=== PATIENT | female | born 1955 | race Caucasian/White ===

== ENCOUNTER 2016-04-21 11:51 | Emergency (ER) | payer OTHER ==
[~2016-04-21] VITALS: Ht 165.1 cm; Wt 74.0 kg
[~2016-04-21 11:51] MED LIST: CHOL1CAP57 PO; METO-551 PO; NRV/5 PO; OXYB5TAB74 PO; ROSU5TAB PO; VITA10004 PO
[2016-04-21 11:54] VITALS: TEMP 36.5; Ht 165.1 cm; Wt 74.0 kg
[2016-04-21 12:07] VITALS: O2SAT 98
[2016-04-21] MEDS ORDERED: ROSU5TAB PO (12:20)
[2016-04-21] MEDS ORDERED: SODIUM CHLORIDE 0.9% 1000ML 1,000 ML IV STA (12:54)
--- NOTE | 2016-04-21 13:15 | DIAGNOSTIC IMAGING REPORT ---
CHEST ONE VIEW PORTABLE CLINICAL HISTORY: Altered mental status. Weakness. COMPARISON STUDY: 01/08/2014 FINDINGS: The cardiac and mediastinal contours are normal. There is no evidence of focal pulmonary consolidation. There is no evidence of failure. No pleural effusions are visualized.[ There is a stable area of linear atelectasis/scarring at the left lung base IMPRESSION: No active disease in the chest. Electronically signed by: Joel Redding M.D. 04/21/2016 1:13 PM Dictated Date/Time: 04/21/2016 1:13 PM
[2016-04-21 13:16] LABS: COMPLETE YES; EOS % 0.8 %; HEMATOCRIT 35.8 % (37-47); IG% 0.2 %; LYMPH % 36.9 %; LYMPH ABS # 1.91 K/uL (1.2-3.4); MEAN CELL VOLUME 86.5 fL (80-100); MEAN CORPUSCULAR HEMOGLOBIN 29.7 pg (25-34); MEAN CORPUSCULAR HGB CONC 34.4 g/dl (32-36); MEAN PLATELET VOLUME 10.2 fL (7.4-10.4); MONO % 7.4 %; NEUT % 54.7 %; PLATELET COUNT 234 K/uL (130-400); RED BLOOD COUNT 4.14 M/uL (4.2-5.4); WHITE BLOOD COUNT 5.17 K/uL (4.8-10.8)
[2016-04-21 13:35] LABS: ALT/SGPT 24 U/L (12-78); BLOOD UREA NITROGEN 20 mg/dl (7-18); BUN/CREATININE RATIO 21.5 (10-20); CALCIUM 9.2 mg/dl (8.5-10.1); CARBON DIOXIDE 24 mmol/L (21-32); CHLORIDE 109 mmol/L (98-107); CREATININE 0.94 mg/dl (0.60-1.20); GLUCOSE 87 mg/dl (70-99); MAGNESIUM 2.1 mg/dl (1.8-2.4); POTASSIUM 3.7 mmol/L (3.5-5.1); SODIUM 143 mmol/L (136-145)
[2016-04-21 13:44] LABS: ALKALINE PHOSPHATASE 70 U/L (45-117); AST/SGOT 15 U/L (15-37); THYROID STIMULATING HORMONE 0.977 uIu/ml (0.300-4.500)
--- NOTE | 2016-04-21 14:34 | EMERGENCY ROOM VISIT NOTE ---
History Report prepared by Ravin: Paty Garzon Under the Supervision of: Dr. Fermin Oswald D.O. First contact with patient: 12:48 Chief Complaint: HYPERTENSION Stated Complaint: HTN, DIZZY - 179/100 History of Present Illness The patient is a 61 year old female who presents to the Emergency Room with complaints of persistent hypertension that began prior to arrival. The patient states that at the end of March she lost her father. She states that for the past three weeks she has been experiencing increased stress and believes that it is all catching up to her now. The patient states that she has been experiencing chest pain and dizziness. 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 The patient states that she has a history of hypertension, noting that she takes 25 mg of Lopressor three times a day. She states that she took her medication normally this morning. Source of History: patient Onset: prior to arrival Position: other (global) Symptom Intensity: 179/100 Quality: other (hypertenison) Timing: other (persistent) Modifying Factors (Worsening): other (stress) Associated Symptoms: + chest pain Note: Associated Symptoms: dizziness Review of Systems See HPI for pertinent positives & negatives. A total of 10 systems reviewed and were otherwise negative. Past Medical & Surgical Medical Problems: (1) HYPERTENSION NOS Family History Cancer Diabetes mellitus Gallbladder disease Heart disease Hypertension Social History Smoking Status: Former Smoker Alcohol Use: occasionally Drug Use: none Marital Status: Housing Status: lives with significant other Occupation Status: employed Current/Historical Medications Scheduled Amlodipine Besylate (Amlodipine Besylate), 5 MG PO DAILY Cholecalciferol (Vitamin D3), 1,000 INTER.UNIT PO DAILY Metoprolol Tartrate (Lopressor), 25 MG PO TID Oxybutynin Chloride (Ditropan), 10 MG PO DAILY Rosuvastatin Calcium (Crestor), 5 MG PO HS Vitamin E (Vitamin E), 1,000 INTER.UNIT PO DAILY Allergies Coded Allergies: Morphine (Verified Allergy, Intermediate, ., 04/21/16) Horse Serum Proteins (Unverified Allergy, Mild, 04/21/16) Iodinated Contrast Media (Verified Allergy, Unknown, ., 04/21/16) Uncoded Allergies: ANY CONTRAST MEDIA (Allergy, Severe, ANAPHYLAXIS, 01/08/14) Physical Exam Vital Signs Date Time Temp Pulse Resp B/P Pulse Ox O2 Delivery O2 Flow Rate FiO2 04/21/16 14:22 66 16 167/92 100 Room Air 04/21/16 13:32 62 16 168/91 95 Room Air 04/21/16 12:48 71 04/21/16 12:07 69 18 164/94 97 Room Air 04/21/16 12:07 98 Room Air 04/21/16 11:54 36.5 72 17 149/90 100 Room Air Physical Exam CONSTITUTIONAL/VITAL SIGNS: Reviewed / noted above. GENERAL: Non-toxic in appearance. INTEGUMENTARY: Warm, dry, and [place]. HEAD: Normocephalic. EYES: without scleral icterus or trauma. ENT/OROPHARYNX: clear and moist. LYMPHADENOPATHY/NECK: Is supple without lymphadenopathy or meningismus. RESPIRATORY: Lungs clear and equal. CARDIOVASCULAR: Regular rate and rhythm. GI/ABDOMEN: Soft and nontender. No organomegaly or pulsatile mass. No rebound or guarding. Normal bowel sounds. EXTREMITIES: Warm and well perfused. BACK: No CVA tenderness. NEUROLOGICAL: Intact without focal deficits. PSYCHIATRIC: normal affect. MUSCULOSKELETAL: Normally developed with good muscle tone. Medical Decision & Procedures ER Provider Diagnostic Interpretation: X ray results and stated below per my interpretation and radiology interpretation. CHEST ONE VIEW PORTABLE CLINICAL HISTORY: Altered mental status. Weakness. COMPARISON STUDY: 01/08/2014 FINDINGS: The cardiac and mediastinal contours are normal. There is no evidence of focal pulmonary consolidation. There is no evidence of failure. No pleural effusions are visualized.[ There is a stable area of linear atelectasis/scarring at the left lung base IMPRESSION: No active disease in the chest. Electronically signed by: Joel Redding M.D. 04/21/2016 1:13 PM Dictated Date/Time: 04/21/2016 1:13 PM Laboratory Results 04/21/16 13:05 Red Blood Count 4.14, Mean Corpuscular Volume 86.5, Mean Corpuscular Hemoglobin 29.7, Mean Corpuscular Hemoglobin Concent 34.4, Mean Platelet Volume 10.2, Neutrophils (%) (Auto) 54.7, Lymphocytes (%) (Auto) 36.9, Monocytes (%) (Auto) 7.4, Eosinophils (%) (Auto) 0.8, Basophils (%) (Auto) 0.0, Neutrophils # (Auto) 2.83, Lymphocytes # (Auto) 1.91, Monocytes # (Auto) 0.38, Eosinophils # (Auto) 0.04, Basophils # (Auto) 0.00 04/21/16 13:05 Test 04/21/16 13:05 White Blood Count 5.17 K/uL (4.8-10.8) Red Blood Count 4.14 M/uL (4.2-5.4) Hemoglobin 12.3 g/dL (12.0-16.0) Hematocrit 35.8 % (37-47) Mean Corpuscular Volume 86.5 fL (80-100) Mean Corpuscular Hemoglobin 29.7 pg (25-34) Mean Corpuscular Hemoglobin Concent 34.4 g/dl (32-36) Platelet Count 234 K/uL (130-400) Mean Platelet Volume 10.2 fL (7.4-10.4) Neutrophils (%) (Auto) 54.7 % Lymphocytes (%) (Auto) 36.9 % Monocytes (%) (Auto) 7.4 % Eosinophils (%) (Auto) 0.8 % Basophils (%) (Auto) 0.0 % Neutrophils # (Auto) 2.83 K/uL (1.4-6.5) Lymphocytes # (Auto) 1.91 K/uL (1.2-3.4) Monocytes # (Auto) 0.38 K/uL (0.11-0.59) Eosinophils # (Auto) 0.04 K/uL (0-0.5) Basophils # (Auto) 0.00 K/uL (0-0.2) RDW Standard Deviation 40.5 fL (36.4-46.3) RDW Coefficient of Variation 12.7 % (11.5-14.5) Immature Granulocyte % (Auto) 0.2 % Immature Granulocyte # (Auto) 0.01 K/uL (0.00-0.02) Prothrombin Time 11.0 SECONDS (9.0-12.0) Prothromb Time International Ratio 1.0 (0.9-1.1) Activated Partial Thromboplast Time 25.4 SECONDS (21.0-31.0) Partial Thromboplastin Ratio 1.0 Anion Gap 10.0 mmol/L (3-11) Est Creatinine Clear Calc Drug Dose 64.1 ml/min Estimated GFR () 76.4 Estimated GFR (Non- 65.9 BUN/Creatinine Ratio 21.5 (10-20) Calcium Level 9.2 mg/dl (8.5-10.1) Magnesium Level 2.1 mg/dl (1.8-2.4) Total Bilirubin 0.3 mg/dl (0.2-1) Direct Bilirubin 0.1 mg/dl (0-0.2) Aspartate Amino Transf (AST/SGOT) 15 U/L (15-37) Alanine Aminotransferase (ALT/SGPT) 24 U/L (12-78) Alkaline Phosphatase 70 U/L (45-117) Total Creatine Kinase 61 U/L (26-192) Creatine Kinase MB < 0.5 ng/ml (0.5-3.6) Creatine Kinase MB Ratio (0-3.0) Troponin I < 0.015 ng/ml (0-0.045) Total Protein 6.6 gm/dl (6.4-8.2) Albumin 3.7 gm/dl (3.4-5.0) Lipase 132 U/L (73-393) Thyroid Stimulating Hormone (TSH) 0.977 uIu/ml (0.300-4.500) Laboratory results as stated above per my review. Medications Administered Medications (Trade) Dose Ordered Sig/Raman Route Start Time Stop Time Status Last Admin Dose Admin Sodium Chloride (Nss 1000ml) 1,000 ml @ 999 mls/hr Q1H1M STAT IV 04/21/16 12:54 04/21/16 13:54 DC 04/21/16 13:06 999 MLS/HR ECG Indication: chest pain, other (hypertension) Rate (beats per minute): 58 Rhythm: sinus bradycardia Findings: no acute ischemic change, no ectopy ED Course 1250: Previous medical records were reviewed. The patient was evaluated in room A4B. A complete history and physical examination was performed. 1254: Ordered Sodium Chloride 1000 ml @ 999 mls/hr IV. 1436: I reevaluated the patient and she is resting comfortably. I discussed the exam findings with her and I discussed the treatment plan. She verbalized complete understanding and agreement. She is ready to go home. Medical Decision the differential was considered includes acute myocardial infarction, acute coronary syndrome, myocarditis, pericarditis, pericardial effusions /tamponad, esophageal perforation, thoracic aortic dissection, pulmonary embolism, pneumonia, pneumothorax, pancreatitis, shingles, acute cholecystitis, perforated abdominal viscus. This is a 61-year-old female who presents to the ED with a chief complaint of high blood pressure. The patient states her father recently and she has been having some stress over this. She developed a little chest discomfort during work today. She works and endoscopy. The patient had her blood pressure checked over there and it was elevated. She was sent here for evaluation. Her initial blood pressure here was 149/90. It was then 164/94. And I saw the patient was 135/84. The patient reports taking Lopressor for her blood pressure. Her physical exam was unremarkable. EKG showed a sinus bradycardia rate of 58. CBC, complete metabolic panel, troponin, TSH and chest x-ray were unremarkable. The patient was told results per cheese felt to be stable for discharge and outpatient follow-up. Impression Primary Impression: Stress reaction Additional Impression: Hypertension Scribe Attestation The scribe's documentation has been prepared under my direction and personally reviewed by me in its entirety. I confirm that the note above accurately reflects all work, treatment, procedures, and medical decision making performed by me. Departure Information Dispostion Home / Self-Care Referrals No Doctor, Assigned (PCP) Forms HOME CARE DOCUMENTATION FORM, IMPORTANT VISIT INFORMATION, WORK / SCHOOL INSTRUCTIONS Patient Instructions My [facility] [employer] Additional Instructions Your blood work and testing today was unremarkable. Follow-up with your doctor for recheck. Problem Qualifiers
[2016-04-21 14:55] VITALS: BP 139/84; PULSE 65; O2SAT 97
== END 2016-04-21 14:56 | disposition home or self-care (01) ==
LOC: C.EDB 11:53 → C.EDA 14:56
DX: F43.9 Reaction to severe stress, unspecified (principal); I10 Essential (primary) hypertension; Z79.899 Other long term (current) drug therapy; Z83.3 Family history of diabetes mellitus; Z87.891 Personal history of nicotine dependence